=== PATIENT | female | born 1945 | race Caucasian/White ===

== ENCOUNTER 2019-11-22 14:15 | Outpatient (RCR) | payer MEDICARE, SELFPAY | END 2020-07-29 16:26 | disposition home or self-care (01) | LOC: HO.WCC 14:15 | PROVIDERS: PCP Family Medicine; Visit Provider Surgery | DX: E11.621 Type 2 diabetes mellitus with foot ulcer (principal); L89.623 Pressure ulcer of left heel, stage 3; L97.512 Non-pressure chronic ulcer of other part of right foot with fat layer exposed; L97.514 Non-pressure chronic ulcer of other part of right foot with necrosis of bone; E11.69 Type 2 diabetes mellitus with other specified complication; M86.271 Subacute osteomyelitis, right ankle and foot; E11.40 Type 2 diabetes mellitus with diabetic neuropathy, unspecified; I89.0 Lymphedema, not elsewhere classified; E66.9 Obesity, unspecified; I10 Essential (primary) hypertension; Z79.01 Long term (current) use of anticoagulants; Z79.84 Long term (current) use of oral hypoglycemic drugs; Z79.899 Other long term (current) drug therapy; Z87.891 Personal history of nicotine dependence | CPT/HCPCS: 11042; 11043; 11044; 15275; 87071; 87186; 87205; 88304; 88305; 88311; 97597; Q4186; Q4187 ==

== ENCOUNTER 2020-08-29 12:38 | Outpatient (RCR) | payer MEDICARE, SELFPAY | END 2020-12-23 16:03 | disposition home or self-care (01) | LOC: HO.WCC 12:38 | PROVIDERS: PCP Family Medicine; Visit Provider Surgery | DX: Z09 Encounter for follow-up examination after completed treatment for conditions other than malignant neoplasm (principal); E11.40 Type 2 diabetes mellitus with diabetic neuropathy, unspecified; I10 Essential (primary) hypertension; Z89.421 Acquired absence of other right toe(s); Z87.891 Personal history of nicotine dependence; Z86.31 Personal history of diabetic foot ulcer | CPT/HCPCS: 11042; 11043; 11046; 97605; 99212; 99213 ==

== ENCOUNTER → 2020-10-15 15:50 | Outpatient (BNVA) | payer MEDICARE, SELFPAY | PROVIDERS: PCP Family Medicine; Visit Provider Surgery | DX: E11.621 Type 2 diabetes mellitus with foot ulcer (principal); L97.509 Non-pressure chronic ulcer of other part of unspecified foot with unspecified severity | CPT/HCPCS: 99202 ==

== ENCOUNTER 2021-01-10 15:24 | Outpatient (RCR) | payer MEDICARE, SELFPAY | END 2021-03-19 15:11 | disposition home or self-care (01) | LOC: HO.WCC 15:24 | PROVIDERS: PCP Family Medicine; Visit Provider Surgery | DX: T23.221D Burn of second degree of single right finger (nail) except thumb, subsequent encounter (principal); S80.821D Blister (nonthermal), right lower leg, subsequent encounter; E11.40 Type 2 diabetes mellitus with diabetic neuropathy, unspecified; I10 Essential (primary) hypertension; T31.0 Burns involving less than 10% of body surface | CPT/HCPCS: 11042; 97597; 99212; 99213; 99215 ==

== ENCOUNTER 2021-04-17 14:02 | Outpatient (RCR) | payer OTHER, SELFPAY | END 2021-08-07 16:00 | disposition home or self-care (01) | LOC: HO.WCC 14:02 | PROVIDERS: PCP Family Medicine; Visit Provider Surgery | DX: E11.621 Type 2 diabetes mellitus with foot ulcer (principal); L89.623 Pressure ulcer of left heel, stage 3; E11.622 Type 2 diabetes mellitus with other skin ulcer; L89.899 Pressure ulcer of other site, unspecified stage; Q82.0 Hereditary lymphedema; E65 Localized adiposity; E66.8 Other obesity; Z79.01 Long term (current) use of anticoagulants; Z79.899 Other long term (current) drug therapy; Z79.84 Long term (current) use of oral hypoglycemic drugs; Z87.891 Personal history of nicotine dependence | CPT/HCPCS: 11042; 97597; 99213 ==